=== PATIENT | male | born 1965 | race Two or more races ===

== ENCOUNTER → 2024-11-16 | Outpatient (CLI) | payer MEDICARE, MEDICAID, SELFPAY ==
--- NOTE | 2024-11-16 10:17 | XR_ITS ---
Examination: Knee, left , 3 views Technique: Knee AP, lateral, oblique 3 views Date and time of exam: November 16, 2024 1042 hours INDICATIONS: Left knee pain 10 years FINDINGS: Bipartite patella Moderate osteopenia Mild to moderate narrowing patellofemoral joint Mild narrowing medial joint space IMPRESSION: Mild to moderate narrowing patellofemoral joint, recommend axial view of the knee follow-up
== END | disposition home or self-care (01) ==
PROVIDERS: PCP Nurse Practitioner; Referring Provider Nurse Practitioner; Visit Provider Nurse Practitioner
DX: M25.862 Other specified joint disorders, left knee (principal)
CPT/HCPCS: 73562